=== PATIENT | female | born 1935 | race Caucasian/White ===

== ENCOUNTER 2021-10-10 09:19 | Day surgery (SDC) | payer OTHER, BC ==
[2021-10-10] MEDS ORDERED: Ringers Lactate 1,000 ML IV ONE (09:44)
[2021-10-10] MEDS ORDERED: CEFAZOLIN/SWI 2gm 2 GM/20 ML SYR ONE (10:32)
[2021-10-10] MEDS ORDERED: LIDOCAINE 1% W/EPI 1:100,000 10 ML VIAL ONE (10:36)
[2021-10-10] MEDS ORDERED: NA CHLORIDE 0.9% 1,000 ML ONE (10:36)
[2021-10-10 10:41] VITALS: O2SAT 100
[2021-10-10] MEDS ORDERED: LIDOCAINE 2% MPF 5 ML VIAL ONE (11:17)
[2021-10-10] MEDS ORDERED: FENTANYL CITR 100 MCG/2 ML ONE (11:17)
[2021-10-10] MEDS ORDERED: propofoL 200 MG/20 ML VIAL IV ONE (11:17)
[2021-10-10] MEDS ORDERED: ONDANSETRON 4 MG/2 ML VIAL ONE (12:12)
[2021-10-10] MEDS ORDERED: HYDROCODONE/APAP 5/325 MG TAB PO PRN (12:59)
[2021-10-10] MEDS ORDERED: IBUPROFEN 200 MG TAB PO PRN (12:59)
[2021-10-10] MEDS: MEPERIDINE HCL 25 MG/ML SYR ONE ×2 (13:00→13:30)
--- NOTE | 2021-10-10 13:02 | P.BOP ---
Preoperative diagnosis: MIKA Postoperative diagnosis: same Primary procedure: Urethral bulking with bulkamid and cystoscopy Leading Firefighter: NONE,NONE Estimated blood loss: min Specimen: none Findings: normal cysto, Bulkamid .85ml Anesthesia: General Complications: None Implants: Bulkamid Transferred to: Recovery Room Condition: Good
--- NOTE | 2021-10-10 14:27 | OP ---
Date of Procedure: 10/10/2021 Surgeon: Lea Mcgraw MD Laminator Printed Circuit Boards: No assistant terminal manager. Preoperative Diagnosis: Stress urinary incontinence. Postoperative Diagnosis: Stress urinary incontinence. Anesthesia: General with LMA. Procedure Performed: Urethral bulking with Bulkamid and cystoscopy. Specimens: No specimens. Complications: No complications. Drains: No drains. Condition: The patient's condition is stable. Indications: The patient is an 86-year-old female with mixed urinary incontinence. The stress component of this was planned to be corrected with urethral bulking. She is on medical treatment on the bladder pathway for overactive bladder. Procedure In Detail: After informed consent was verified, 2 g of Ancef was given, the patient was taken back to the operating room. Vulva, vagina, and perineum were prepped and draped in a sterile fashion, and cystoscopy was performed with the pediatric cystoscope and normal saline. Then, once the cystoscopy was performed, no evidence of any tumors or other pathology. Scope was pulled out, adjusted for brisk dripping flow on the inflow. Then the Bulkamid needle was introduced into the Bulkamid sheath. The tip of the sheath was placed at the internal meatus and the needle was advanced to 2 cm. Then, the entire system was pulled back into the urethra 2 cm to the tip of needle at the level of the internal meatus. Then, turning the o'clock position of the injectable site to 5 o'clock, the needle was pulled back to the level of this distance from the internal meatus about 2 cm and the bevel facing towards the lumen injected in the submucosal area at least 2.5 cm and then the Hydrogel was injected after a decent sized bubble was formed. Then this was turned to 2 o'clock and injection was performed. Then went to the 11 o'clock and further injection was performed and then the last injection was given at 8 o'clock. Once all these were done, there was excellent and optimal narrowing of the urethra and I was able to retract the whole system back. Total used 0.8ml of the Bulkamid hydrogel. EBL was minimal. Instrument, needle, sponge counts were correct. The patient was recovered from anesthesia and taken to PACU in stable condition for a voiding trial. She will follow up with me in 3 days for another voiding trial. If she fails a voiding trial, we will send her home with the 12- Greek catheter. SK/MODL Voice ID: [id number] Report ID: [id number] ULISSES
[2021-10-10 15:26] VITALS: BP 149/93
[2021-10-10 15:36] VITALS: TEMP 98.2
[2021-10-10] MEDS ORDERED: ATORVASTATIN 40 MG TAB PO SCH (21:00)
[2021-10-11] MEDS ORDERED: DOCUSATE NA 100 MG CAP PO SCH (09:00)
[2021-10-11] MEDS ORDERED: NEBIVOLOL HCL 20 MG TABLET PO SCH (09:00)
[2021-10-11] MEDS ORDERED: HOME MED 1 EA UNK (Trospium Chloride [Sanctura] 20 MG Tablet) PO SCH (09:00)
[2021-10-11] MEDS ORDERED: AMLODIPINE 5 MG TAB PO SCH (09:00)
[2021-10-11] MEDS ORDERED: HOME MED 1 EA UNK (Lactobacillus Acidophilus [Probiotic] Capsule) PO SCH (09:00)
[2021-10-11] MEDS ORDERED: VITAMIN E 400 UNIT PO SCH (09:00)
[2021-10-11] MEDS ORDERED: ASPIRIN EC 81 MG TAB PO SCH (09:00)
[2021-10-11] MEDS ORDERED: ASCORBIC ACID 500 MG TABLET PO SCH (09:00)
[2021-10-11] MEDS ORDERED: HOME MED 1 EA UNK (Cholecalciferol (Vitamin D3) [Vitamin D3] 2000 UNIT Capsule) PO SCH (09:00)
[2021-10-11] MEDS ORDERED: MORINGA PO SCH (09:00)
[2021-10-11] MEDS ORDERED: HOME MED 1 EA UNK (Duloxetine Hcl [Duloxetine Hcl] 60 MG Capsule.Dr) PO SCH (09:00)
[2021-10-11] MEDS ORDERED: hydroCHLOROthiazide 12.5 MG CAP PO SCH (09:00)
[2021-10-11] MEDS ORDERED: HOME MED 1 EA UNK (Liraglutide [Victoza 2-Pak] 0.6 MG/0.1 ML Pen.Injctr) SQ SCH (09:00)
[2021-10-11] MEDS ORDERED: HOME MED 1 EA UNK (Losartan Potassium [Losartan Potassium] 100 MG Tablet) PO SCH (09:00)
[2021-10-11] MEDS ORDERED: HOME MED 1 EA UNK (Estradiol [Estradiol] 42.5 GM Cream.Appl) VG SCH (17:00)
== END 2021-10-10 15:00 | disposition home or self-care (01) ==
LOC: OR 09:19
PROVIDERS: ATTEND Obstetrics & Gynecology
PROC: 0TVD8ZZ Restriction of Urethra, Via Natural or Artificial Opening Endoscopic (ICD-10-PCS; principal; 2021-10-10 12:15)
DX: N39.3 Stress incontinence (female) (male) (principal); R39.14 Feeling of incomplete bladder emptying; N95.2 Postmenopausal atrophic vaginitis; N32.81 Overactive bladder; Z20.822 Contact with and (suspected) exposure to COVID-19
CPT/HCPCS: 82947 ×2; 51715; U0003; J2704; J3010; J2175; J0690; J7120; J7030; J2405; L8606

== ENCOUNTER 2022-02-20 07:15 | Day surgery (SDC) | payer OTHER, BC ==
[2022-02-20] MEDS ORDERED: CEFAZOLIN/SWI 2gm 2 GM/20 ML SYR ONE (07:33)
[2022-02-20] MEDS ORDERED: NA CHLORIDE 0.9% 1,000 ML ONE (07:33)
[2022-02-20 08:15] VITALS: O2SAT 100
[2022-02-20] MEDS ORDERED: ACETAMINOPHEN 500 MG TAB ONE (08:31)
[2022-02-20] MEDS ORDERED: propofoL 200 MG/20 ML VIAL IV ONE (08:41)
[2022-02-20] MEDS ORDERED: FENTANYL CITR 100 MCG/2 ML ONE (08:41)
[2022-02-20] MEDS ORDERED: ROCURONIUM 50 MG/5 ML VIAL IV ONE (08:42)
[2022-02-20] MEDS ORDERED: LIDOCAINE 2% MPF 5 ML VIAL ONE (08:42)
[2022-02-20] MEDS ORDERED: ONDANSETRON 4 MG/2 ML VIAL ONE (08:43)
[2022-02-20] MEDS ORDERED: Mastisol Adhesive Liq ONE (10:13)
[2022-02-20] MEDS: BUPIVACAINE 0.25% PF 10 ML VIAL ONE ×2 (11:28→11:39)
[2022-02-20] MEDS ORDERED: EPHEDRINE SULF 50 MG/ML VIAL ONE (11:45)
[2022-02-20 14:29] VITALS: BP 120/47; TEMP 96.2
--- NOTE | 2022-02-20 17:23 | RAD REPORT ---
EXAM DESCRIPTION: RAD - Fluoroscopy <1 Hour - 02/20/2022 5:04 pm FINDINGS: There were 25 portable C-arm images submitted from a fluoroscopic assisted sacral neural m odulation procedure. No suspicious or unexpected finding. Fluoro time was 1.5 minutes with a 37.4 mGy cumulative dose.
== END 2022-02-20 14:25 | disposition home or self-care (01) ==
LOC: OR 07:15
PROVIDERS: ATTEND Obstetrics & Gynecology
PROC: 4A1104G Monitoring of Peripheral Nervous Electrical Activity, Intraoperative, Open Approach (ICD-10-PCS; principal; 2022-02-20 08:30)
DX: N39.3 Stress incontinence (female) (male) (principal); N32.81 Overactive bladder; E11.9 Type 2 diabetes mellitus without complications; I10 Essential (primary) hypertension; Z20.822 Contact with and (suspected) exposure to COVID-19
CPT/HCPCS: 80048; 36415; 82947 ×2; 53899; U0002; J2704; J3010; J0690; J7030; J2405; 76000

== ENCOUNTER 2022-03-06 06:23 | Day surgery (SDC) | payer OTHER, BC ==
[2022-03-06] MEDS ORDERED: CEFAZOLIN/SWI 2gm 2 GM/20 ML SYR ONE (06:50)
[2022-03-06] MEDS ORDERED: NA CHLORIDE 0.9% 1,000 ML ONE (06:50)
[2022-03-06] MEDS ORDERED: propofoL 200 MG/20 ML VIAL IV ONE ×2 (07:14→07:32)
[2022-03-06] MEDS ORDERED: FENTANYL CITR 100 MCG/2 ML ONE (07:14)
[2022-03-06] MEDS ORDERED: LIDOCAINE 2% MPF 5 ML VIAL ONE (07:15)
[2022-03-06] MEDS ORDERED: MIDAZOLAM HCL 2 MG/2 ML INJ ONE (07:15)
[2022-03-06] MEDS ORDERED: ONDANSETRON 4 MG/2 ML VIAL ONE (07:16)
[2022-03-06] MEDS ORDERED: LIDOCAINE 1% MPF 30 ML VIAL ONE (07:19)
[2022-03-06] MEDS ORDERED: LIDOCAINE 1% W/EPI 1:100,000 MDV 50 ML VIAL ONE (07:20)
[2022-03-06] MEDS ORDERED: IBUPROFEN 200 MG TAB PO PRN (09:05)
[2022-03-06] MEDS ORDERED: MEPERIDINE HCL 25 MG/ML SYR IM PRN (09:05)
--- NOTE | 2022-03-06 09:07 | P.BOP ---
Preoperative diagnosis: refractory OAB Postoperative diagnosis: same Primary procedure: stage 2 Interstim insertion and battery programming Distributor Cleaner: NONE,NONE Estimated blood loss: min Specimen: none Findings: intact lead wire Anesthesia: General Complications: None Transferred to: Recovery Room Condition: Good
[2022-03-06 09:29] VITALS: BP 118/58; TEMP 97.2; O2SAT 100
--- NOTE | 2022-03-06 20:18 | OP ---
Date of Procedure: 03/06/2022 Surgeon: Lea Mcgraw MD Preoperative Diagnosis: Refractory overactive bladder. Postoperative Diagnosis: Refractory overactive bladder. Procedures Performed: Stage II InterStim with insertion of the battery and programming. Anesthesia: MAC with a local block. Complications: None. Drains: None. Specimens: None. Ebl: Minimal. Condition: Stable. Findings: The lead wire was intact. The external test wire was removed and the implant placed at le ast half to 3/4th-inch deep to the skin and closed with absorbable sutures in 3 layers. The device was coupled and then the patient was recovered from anesthesia and taken to the PACU. Indications: After informed consent was verified, the patient was brought to the OR. This is an 87- year-old who underwent stage I in the operating room with significant success. Based on her voiding log and her history, wanted to proceed with stage II implantation of the battery. Procedure In Detail: After she was consented, 2 g of Ancef were given. She was taken back to the OR , placed in the prone position. After MAC was given, her back was prepped and draped in a sterile fa shion. The incision on the left buttock was made after injecting with local 0.25% Marcaine with epin ephrine, 20 cc was injected. A 7-cm incision was made extending from the old scar at the time of sta ge I, then the pocket was created at least 3/4 to 1-inch deep without touching the bone 2 cm inferior and medial to the iliac crest. A pocket was created at least 1.5 cm towards the cephalad end of the incision and then at least 2 inc hes caudad to fit the battery. The lead wire was pulled back to expose the tip of the lead wire, which was inserted into the test wi re connector. A screwdriver was used to unlock the tip of the lead wire out, cut the attachment and then the wire was pulled out through the old incision on the right side, then this was discarded. Th e battery was then opened up and the lead wire inserted into the battery to lock it. The screwdriver was used to turn it, 2 to 3 turns. Once this was appropriate and fully inserted, then using the ret ractor, the battery was inserted leaving the lead wire behind the battery. Irrigation of the pocket was done with sterile water. Once the paring was done, the subcutaneous tissues were closed with the help of 3-0 chromic and a second layer of 3-0 chromic was placed in the subcutaneous tissues and sub cuticular closure was performed with the help of 3-0 chromic as well. Dermabond was placed, device w as pared, re-checked again that it connected, and the patient was recovered from anesthesia and taken to PACU in stable condition. EBL was minimal. She will follow up with me in 1 week. Programming will be done tomorrow. ABDULLAHI/ALICE Voice ID: [id number] Report ID: [id number]
[2022-03-06] MEDS ORDERED: ATORVASTATIN 40 MG TAB PO SCH (21:00)
[2022-03-07] MEDS ORDERED: HOME MED 1 EA UNK (Losartan Potassium [Losartan Potassium] 100 MG Tablet) PO SCH (09:00)
[2022-03-07] MEDS ORDERED: ASCORBIC ACID 500 MG TABLET PO SCH (09:00)
[2022-03-07] MEDS ORDERED: NEBIVOLOL HCL 20 MG TABLET PO SCH (09:00)
[2022-03-07] MEDS ORDERED: HOME MED 1 EA UNK (Lactobacillus Acidophilus [Probiotic] Capsule) PO SCH (09:00)
[2022-03-07] MEDS ORDERED: DOCUSATE NA 100 MG CAP PO SCH (09:00)
[2022-03-07] MEDS ORDERED: hydroCHLOROthiazide 12.5 MG CAP PO SCH (09:00)
[2022-03-07] MEDS ORDERED: VITAMIN E 400 UNIT PO SCH (09:00)
[2022-03-07] MEDS ORDERED: HOME MED 1 EA UNK (Cholecalciferol (Vitamin D3) [Vitamin D3] 2000 UNIT Capsule) PO SCH (09:00)
[2022-03-07] MEDS ORDERED: AMLODIPINE 5 MG TAB PO SCH (09:00)
[2022-03-07] MEDS ORDERED: HOME MED 1 EA UNK (Liraglutide [Victoza 2-Pak] 0.6 MG/0.1 ML Pen.Injctr) SQ SCH (09:00)
[2022-03-08] MEDS ORDERED: ASPIRIN EC 81 MG TAB PO SCH (09:00)
== END 2022-03-06 10:05 | disposition home or self-care (01) ==
LOC: OR 06:23
PROVIDERS: ATTEND Obstetrics & Gynecology
PROC: 0JH70BZ Insertion of Single Array Stimulator Generator into Back Subcutaneous Tissue and Fascia, Open Approach (ICD-10-PCS; principal; 2022-03-06 07:30)
DX: N32.81 Overactive bladder (principal); Z20.822 Contact with and (suspected) exposure to COVID-19
CPT/HCPCS: 82947 ×2; 64590; U0003; J2704; J3010; J0690; J7030; J2405; J2250

== ENCOUNTER 2024-04-04 07:01 | Emergency (ER) | payer OTHER, BC ==
[2024-04-04] MEDS ORDERED: FENTANYL CITR 100 MCG/2 ML ONE (07:38)
[2024-04-04] MEDS ORDERED: dexAMETHasone 10 MG/ML VIAL ONE (07:38)
[2024-04-04] MEDS ORDERED: ONDANSETRON 4 MG/2 ML VIAL ONE (07:38)
[2024-04-04] MEDS ORDERED: KETOROLAC 30 MG/ML INJ ONE (07:38)
[2024-04-04] MEDS ORDERED: NA CHLORIDE 0.9% 500 ML ONE (07:40)
[2024-04-04 07:58] LABS: Absolute Basophils 0.1 K/uL (0-0.5); Absolute Eosinophils 0.2 K/uL (0-0.5); Absolute Lymphocytes (CBC) 1.2 K/uL (0.7-4.9); Absolute Monocytes 0.8 K/uL (0.1-1.3); Absolute Neutrophil 4.3 K/uL (1.8-8.0); Basophils % 1.2 % (0-1.3); Eosinophils % 2.9 % (0-4.4); Hematocrit 36.3 % (36.0-45.0); Hemoglobin 12.2 g/dL (12.0-15.0); Lymphocytes % 18.1 % (15.3-44.8); MCH 33.2 pg (27.0-35.0); MCHC 33.6 g/dL (32.0-36.0); MCV 98.9 fL (80-100); Monocytes % 12.7 % (3.3-12.3); Neutrophils % 65.1 % (41.7-73.7); Nucleated Red Blood Cells % 0.1 % (0-0); Platelets 263 thou/uL (152-406); RBC Red Blood Cell Count 3.67 M/uL (3.86-4.86); Red Cell Distribution Width 14.7 % (12.1-15.2)
--- NOTE | 2024-04-04 08:04 | RAD REPORT ---
EXAM DESCRIPTION: RAD - Ankle Right 3 View - 04/04/2024 7:52 am CLINICAL HISTORY: PAIN COMPARISON: Ankle Left 3 View dated 04/27/2020 FINDINGS/IMPRESSION: No acute fracture. No malalignment. Plantar and dorsal aspect calcaneal spurs.
--- NOTE | 2024-04-04 08:05 | RAD REPORT ---
EXAM DESCRIPTION: RAD - Foot Right 3 View - 04/04/2024 7:52 am CLINICAL HISTORY: PAIN COMPARISON: Foot Right 3 View dated 10/22/2023; Ankle Right 3 View dated 04/04/2024 FINDINGS/IMPRESSION: No acute fracture. No malalignment. Mild degenerate changes at the first MTP priyanka int.
--- NOTE | 2024-04-04 08:21 | RAD REPORT ---
EXAM DESCRIPTION: US - Extremity Venous Uni Ltd - 04/04/2024 8:02 am CLINICAL HISTORY: Pain COMPARISON: None. TECHNIQUE: Real-time sonographic evaluation of the right lower extremity deep venous system was perf ormed. FINDINGS: Normal compressibility, flow augmentation, phasic flow and spontaneous flow is identified in the right lower extremity deep venous system. No intraluminal filling defects seen. IMPRESSION: No DVT in the right lower extremity.
[2024-04-04 08:31] LABS: Albumin 3.5 g/dL (3.4-5.0); Albumin/Globulin Ratio 1.2 (1.1-1.8); Anion Gap 6.9 mEq/L (5.0-15.0); Bilirubin Total 1.1 mg/dL (0.2-1.0); Globulin 2.9 g/dL (2.3-3.5); Potassium 3.9 mEq/L (3.5-5.1); Protein, Total 6.4 g/dL (6.4-8.2)
--- NOTE | 2024-04-04 08:38 | ER ---
Nurse's Notes [facility] Name: Supriya Bright Age: 89 yrs Sex: Female : 1935 Arrival Date: 04/04/2024 Time: 07:01 Bed 6 Private MD: Diagnosis: Pain in right foot;Pain in right ankle and joints of right foot Presentation: 04/04 07:14 Chief complaint: Patient states: "I have neuropathy but my right foot has been hurting aa5 worse and it's now swollen". Pt c/o pain to right ankle and foot. Pt states "maybe I twisted yesterday because I was folding clothes and I felt a sharp pain". 07:14 Coronavirus screen: At this time, the client does not indicate any symptoms associated aa5 with coronavirus-19. Ebola Screen: Patient denies travel to an Ebola-affected area in the 21 days before illness onset. Initial Sepsis Screen: Does the patient meet any 2 criteria? No. Patient's initial sepsis screen is negative. Does the patient have a suspected source of infection? No. Patient's initial sepsis screen is negative. Risk Assessment: Do you want to hurt yourself or someone else? Patient reports no desire to harm self or others. Onset of symptoms was April 03, 2024. 07:14 Method Of Arrival: Ambulatory aa5 07:14 Acuity: TOLU 3 aa5 Historical: - Allergies: 07:22 No Known Allergies; aa5 - PMHx: 07:22 Hypertensive disorder; Diabetes mellitus; neuropathy; hard of hearing; aa5 - Immunization history:: Adult Immunizations unknown. - Infectious Disease History:: Denies. - Social history:: Smoking status: Patient denies any tobacco usage or history of. Screenin:26 [facility] ED Fall Risk Assessment (Adult) History of falling in the last 3 months, aa5 including since admission No falls in past 3 months (0 pts) Confusion or Disorientation No (0 pts) Intoxicated or Sedated No (0 pts) Impaired Gait Yes (1 pt) Mobility Assist Device Used Yes (1 pt) Altered Elimination No (0 pt) Score/Fall Risk Level 0 - 2 = Low Risk Oriented to surroundings, Maintained a safe environment, Educated pt \\T\\ family on fall prevention, incl call for assistance when getting out of bed. Abuse screen: Denies threats or abuse. Nutritional screening: No deficits noted. Tuberculosis screening: No symptoms or risk factors identified. Assessment: 07:15 General: Appears comfortable, Behavior is calm, cooperative. Pain: Complains of pain in aa5 right ankle and right foot. Neuro: Level of Consciousness is awake, alert, obeys commands, Oriented to person, place, time, situation. Cardiovascular: Patient's skin is warm and dry. Respiratory: Airway is patent Respiratory effort is even, unlabored, Respiratory pattern is regular, symmetrical. GI: No signs and/or symptoms were reported involving the gastrointestinal system. : No signs and/or symptoms were reported regarding the genitourinary system. EENT: No signs and/or symptoms were reported regarding the EENT system. Derm: Skin is pink, warm \\T\\ dry. Musculoskeletal: Swelling present in right ankle Reports pain in right ankle and right foot. 08:13 Reassessment: Patient is alert, oriented x 3, equal unlabored respirations, skin aa5 warm/dry/pink. Assisted with bedpan, pt voided.. 09:00 Reassessment: Patient is alert, oriented x 3, equal unlabored respirations, skin aa5 warm/dry/pink. Vital Signs: 07:14 BP 124 / 92; Pulse 65; Resp 17 S; Temp 97.8(TE); Pulse Ox 100% on R/A; Weight 76.2 kg aa5 (R); Height 5 ft. 5 in. (R); 08:13 BP 94 / 66; Pulse 60; Resp 18 S; Pulse Ox 100% on R/A; aa5 08:40 BP 114 / 48; Pulse 56; Resp 16 S; Pulse Ox 100% on R/A; aa5 08:55 BP 108 / 49; Pulse 60; Resp 16 S; Temp 97.5(TE); Pulse Ox 100% on R/A; aa5 07:14 Body Mass Index 27.96 (76.20 kg, 165.1 cm) aa5 [place] Coma Score: 07:27 Eye Response: spontaneous(4). Motor Response: obeys commands(6). Verbal Response: loretta oriented(5). Total: 15. ED Course: 07:05 Patient arrived in ED. ts1 07:05 Juliocesar Delong MD is Attending Physician. loretta 07:14 Arm band placed on. aa5 07:14 Patient has correct armband on for positive identification. Bed in low position. Call aa5 light in reach. Side rails up X2. Pulse ox on. NIBP on. 07:22 Janet Chapa, ESTUARDO is Primary Nurse. aa5 07:25 Triage completed. aa5 07:35 Initial lab(s) drawn, by me, sent to lab. Inserted saline lock: 22 gauge in right aa5 forearm, using aseptic technique. Blood collected. 07:54 Foot Right 3 View XRAY In Process Unspecified. EDMS 07:54 Ankle Right 3 View XRAY In Process Unspecified. EDMS 08:04 US Extremity Venous Unilateral Ltd In Process Unspecified. EDMS 08:37 Dawson Cabrera MD is Referral Physician. [facility] 09:00 No provider procedures requiring assistance completed. IV discontinued, intact, aa5 bleeding controlled, No redness/swelling at site. Pressure dressing applied. Administered Medications: 07:45 Drug: NS 0.9% IV 500 ml IV at bolus once Route: IV; Rate: bolus; Site: right forearm; aa5 08:30 Follow up: IV Status: Completed infusion; IV Intake: 500ml aa5 07:45 Drug: Ondansetron IVP 4 mg IVP once; over 2 minutes Route: IVP; Site: right forearm; aa5 08:00 Follow up: Response: No adverse reaction aa5 07:47 Drug: Ketorolac IVP 15 mg IVP once Route: IVP; Site: right forearm; aa5 08:00 Follow up: Response: No adverse reaction aa5 07:48 Drug: Decadron - Dexamethasone IVP 10 mg IVP once Route: IVP; Site: right forearm; aa5 08:00 Follow up: Response: No adverse reaction aa5 07:49 Drug: fentaNYL (PF) IVP 25 mcg IVP once Route: IVP; Site: right forearm; aa5 08:00 Follow up: Response: No adverse reaction aa5 08:48 Not Given (Physician Discretion): ns 0.9% 500 ml IV at bolus once aa5 Medication: 07:26 VIS not applicable for this client. aa5 Intake: 08:30 IV: 500ml; Total: 500ml. aa5 Outcome: 08:37 Discharge ordered by . loretta 09:00 Discharged to home via wheelchair, with family, aa5 09:00 Condition: stable 09:00 Discharge instructions given to patient, Instructed on discharge instructions, follow up and referral plans. medication usage, Demonstrated understanding of instructions, follow-up care, medications, Prescriptions given X 3, 09:03 Patient left the ED. aa5 Signatures: Dispatcher [employer] EDJuliocesar Samuels MD MD cha Calderon, Audri RN RN aa5 Emily Geiger PAS PAS ts1 Corrections: (The following items were deleted from the chart) 57 07:45 Inserted saline lock: 22 gauge in right forearm, using aseptic technique. Blood aa5 collected. aa5 57 07:45 Initial lab(s) drawn, by va, sent to lab. aa5 aa5
--- NOTE | 2024-04-04 08:38 | EDPHYS ---
Physician Documentation [facility] Name: Supriya Bright Age: 89 yrs Sex: Female : 1935 Arrival Date: 04/04/2024 Time: 07:01 Bed 6 Private MD: ED Physician Juliocesar Delong HPI: 04/04 07:26 This 89 yrs old Female presents to ER via Ambulatory with complaints of Leg loretta Pain. 07:26 The patient presents with decreased range of motion, pain, tenderness. The complaints loretta affect the right foot. Context: The problem was sustained at home, resulted from an unknown cause, the patient can partially bear weight, the patient is able to ambulate, with mild difficulty. Onset: The symptoms/episode began/occurred 2 day(s) ago. Modifying factors: The symptoms are alleviated by elevating leg, remaining still, the symptoms are aggravated by nothing. Associated signs and symptoms: The patient has no apparent associated signs or symptoms. Severity of symptoms: At their worst the symptoms were moderate, in the emergency department the symptoms are unchanged. The patient has not experienced similar symptoms in the past. Historical: - Allergies: 07:22 No Known Allergies; aa5 - PMHx: 07:22 Hypertensive disorder; Diabetes mellitus; neuropathy; hard of hearing; aa5 - Immunization history:: Adult Immunizations unknown. - Infectious Disease History:: Denies. - Social history:: Smoking status: Patient denies any tobacco usage or history of. ROS: 07:27 Constitutional: Negative for fever, chills, and weight loss, Eyes: Negative for injury, loretta pain, redness, and discharge, ENT: Negative for injury, pain, and discharge, Neck: Negative for injury, pain, and swelling, Cardiovascular: Negative for chest pain, palpitations, and edema, Respiratory: Negative for shortness of breath, cough, wheezing, and pleuritic chest pain, Abdomen/GI: Negative for abdominal pain, nausea, vomiting, diarrhea, and constipation, Back: Negative for injury and pain, : Negative for injury, bleeding, discharge, and swelling, Skin: Negative for injury, rash, and discoloration, Neuro: Negative for headache, weakness, numbness, tingling, and seizure, Psych: Negative for depression, anxiety, suicide ideation, homicidal ideation, and hallucinations, Allergy/Immunology: Negative for hives, rash, and allergies, Endocrine: Negative for neck swelling, polydipsia, polyuria, polyphagia, and marked weight changes, Hematologic/Lymphatic: Negative for swollen nodes, abnormal bleeding, and unusual bruising, 07:27 MS/extremity: Positive for decreased range of motion, pain, of the right foot, Exam: 07:27 Constitutional: This is a well developed, well nourished patient who is awake, alert, loretta and in no acute distress. Head/Face: Normocephalic, atraumatic. Eyes: Pupils equal round and reactive to light, extra-ocular motions intact. Lids and lashes normal. Conjunctiva and sclera are non-icteric and not injected. Cornea within normal limits. Periorbital areas with no swelling, redness, or edema. ENT: Nares patent. No nasal discharge, no septal abnormalities noted. Tympanic membranes are normal and external auditory canals are clear. Oropharynx with no redness, swelling, or masses, exudates, or evidence of obstruction, uvula midline. Mucous membranes moist. Neck: Trachea midline, no thyromegaly or masses palpated, and no cervical lymphadenopathy. Supple, full range of motion without nuchal rigidity, or vertebral point tenderness. No Meningismus. Chest/axilla: Normal chest wall appearance and motion. Nontender with no deformity. No lesions are appreciated. Cardiovascular: Regular rate and rhythm with a normal S1 and S2. No gallops, murmurs, or rubs. Normal PMI, no JVD. No pulse deficits. Respiratory: Lungs have equal breath sounds bilaterally, clear to auscultation and percussion. No rales, rhonchi or wheezes noted. No increased work of breathing, no retractions or nasal flaring. Abdomen/GI: Soft, non-tender, with normal bowel sounds. No distension or tympany. No guarding or rebound. No evidence of tenderness throughout. Back: No spinal tenderness. No costovertebral tenderness. Full range of motion. Skin: Warm, dry with normal turgor. Normal color with no rashes, no lesions, and no evidence of cellulitis. Neuro: Awake and alert, GCS 15, oriented to person, place, time, and situation. Cranial nerves II-XII grossly intact. Motor strength 5/5 in all extremities. Sensory grossly intact. Cerebellar exam normal. Normal gait. Psych: Awake, alert, with orientation to person, place and time. Behavior, mood, and affect are within normal limits. 07:27 Musculoskeletal/extremity: ROM: full active range of motion, full passive range of motion, limited active range of motion due to pain, limited passive range of motion due to pain, Pulses: are normal with no appreciated deficits, Sensation intact. Compartment Syndrome exam of affected extremity: is normal. Joints: All joints are normal except the right ankle displays pain at rest, painful range of motion, tenderness, Weight bearing: can bear weight with assistance only, DVT Exam: no swelling, negative Homans' sign noted on exam, no appreciated bluish discoloration, no erythema, no increased warmth, pain, tenderness, Vital Signs: 07:14 BP 124 / 92; Pulse 65; Resp 17 S; Temp 97.8(TE); Pulse Ox 100% on R/A; Weight 76.2 kg aa5 (R); Height 5 ft. 5 in. (R); 08:13 BP 94 / 66; Pulse 60; Resp 18 S; Pulse Ox 100% on R/A; aa5 08:40 BP 114 / 48; Pulse 56; Resp 16 S; Pulse Ox 100% on R/A; aa5 08:55 BP 108 / 49; Pulse 60; Resp 16 S; Temp 97.5(TE); Pulse Ox 100% on R/A; aa5 07:14 Body Mass Index 27.96 (76.20 kg, 165.1 cm) aa5 [place] Coma Score: 07:27 Eye Response: spontaneous(4). Motor Response: obeys commands(6). Verbal Response: loretta oriented(5). Total: 15. MDM: 07:06 Patient medically screened. [facility] 07:42 Data reviewed: vital signs, nurses notes, lab test result(s), radiologic studies, plain loretta films, ultrasound. Consideration of Admission/Observation Escalation of care including admission/observation considered. I considered the following discharge prescriptions or medication management in the emergency department Medications were administered in the Emergency Department. See MAR. Independent interpretation of the following test(s) in the Emergency Department X-Ray: My interpretation is foot and ankle. Test considered but Not performed: CT: no ct foot and ankle. 04/04 07:25 Order name: CBC with Diff; Complete Time: 08:18 [facility] 04/04 07:25 Order name: Comprehensive Metabolic Panel; Complete Time: 08:37 loretta 04/04 07:25 Order name: Foot Right 3 View XRAY; Complete Time: 08:18 loretta 04/04 07:25 Order name: Ankle Right 3 View XRAY; Complete Time: 08:18 loretta 04/04 07:26 Order name: US Extremity Venous Unilateral Ltd; Complete Time: 08:29 loretta Administered Medications: 07:45 Drug: NS 0.9% IV 500 ml IV at bolus once Route: IV; Rate: bolus; Site: right forearm; aa5 08:30 Follow up: IV Status: Completed infusion; IV Intake: 500ml aa5 07:45 Drug: Ondansetron IVP 4 mg IVP once; over 2 minutes Route: IVP; Site: right forearm; aa5 08:00 Follow up: Response: No adverse reaction aa5 07:47 Drug: Ketorolac IVP 15 mg IVP once Route: IVP; Site: right forearm; aa5 08:00 Follow up: Response: No adverse reaction aa5 07:48 Drug: Decadron - Dexamethasone IVP 10 mg IVP once Route: IVP; Site: right forearm; aa5 08:00 Follow up: Response: No adverse reaction aa5 07:49 Drug: fentaNYL (PF) IVP 25 mcg IVP once Route: IVP; Site: right forearm; aa5 08:00 Follow up: Response: No adverse reaction aa5 08:48 Not Given (Physician Discretion): ns 0.9% 500 ml IV at bolus once aa5 Disposition Summary: 04/04/24 08:37 Discharge Ordered Notes: Location: Home loretat Problem: new loretta Symptoms: have improved loretta Condition: Stable loretta Diagnosis - Pain in right foot loretta - Pain in right ankle and joints of right foot loretta Followup: loretta - With: Private Physician - When: 2 - 3 days - Reason: Recheck today's complaints, Continuance of care, Re-evaluation by your physician Followup: loretta - With: Dawson Cabrera MD - When: 2 - 3 days - Reason: Recheck today's complaints, Re-evaluation by your physician Discharge Instructions: - Discharge Summary Sheet loretta - Joint Pain loretta - Arthritis loretta - Musculoskeletal Pain loretta - Ankle Pain loretta - Joint Pain, [id number] loretta - Foot Pain loretta Forms: - Medication Reconciliation Form loretta - Antibiotic Education loretta - Prescription Opioid Use loretta - Patient Portal Instructions [facility] - Leadership Thank You Letter [facility] Prescriptions: - acetaminophen-codeine 300-30 mg Oral tablet - take 2 tablet ORAL route every 6 hours as needed for pain; 20 tablet; Refills: [facility] 0, Product Selection Permitted - diclofenac sodium 25 mg Oral tablet, delayed release (enteric coated) - take 1 tablet ORAL route every 12 hours as needed for pain; 20 tablet; Refills: [facility] 0, Product Selection Permitted - Medrol (Ruddy) 4 mg Oral Tablets, Dose Pack - take 1 tablet ORAL route as directed - follow package instructions; 1 packet; [facility] Refills: 0, Product Selection Permitted Signatures: Dispatcher [employer] Juliocesar Vasquez MD MD cha Calderon, Audri, RN RN aa5
[2024-04-04 09:21] VITALS: BP 114/48; TEMP 97.8; O2SAT 100
== END 2024-04-04 09:03 | disposition home or self-care (01) ==
LOC: ER 07:01
DX: M79.671 Pain in right foot (principal); M25.571 Pain in right ankle and joints of right foot
CPT/HCPCS: 96361; 85025; 36415; 80053; 73630; 73610; 93971; 96375; 96374; 99284; J3010; J1100; J2405; J7040

== ENCOUNTER 2025-03-29 14:34 | Observation (INO) | payer OTHER, BC ==
[2025-03-29] MEDS: NA CHLORIDE 0.9% 1,000 ML IV SCH (15:40)
[2025-03-29 15:54] VITALS: BMI 27.4
[2025-03-29 16:18] LABS: Absolute Lymphocytes (CBC) 0.3 K/uL (0.7-4.9); Absolute Monocytes 0.8 K/uL (0.1-1.3); Absolute Neutrophil 2.5 K/uL (1.8-8.0); Basophils % 0.8 % (0-1.3); Eosinophils % 1.1 % (0-4.4); Hematocrit 32.1 % (36.0-45.0); Hemoglobin 11.2 g/dL (12.0-15.0); Lymphocytes % 9.3 % (15.3-44.8); MCH 35.2 pg (27.0-35.0); MCV 100.6 fL (80-100); MPV 7.3 fL (7.6-11.3); Monocytes % 20.9 % (3.3-12.3); Neutrophils % 67.9 % (41.7-73.7); Nucleated Red Blood Cells % 0.1 % (0-0); Platelets 167 thou/uL (152-406); RBC Red Blood Cell Count 3.19 M/uL (3.86-4.86); Red Cell Distribution Width 15.2 % (12.1-15.2)
[2025-03-29] MEDS: INSULIN REGULAR (HUMAN) 100 UNIT/ML SQ SCH (16:30)
[2025-03-29 16:41] LABS: Albumin/Globulin Ratio 1.3 (1.1-1.8); Anion Gap 8.3 mEq/L (5.0-15.0); Bilirubin Total 0.7 mg/dL (0.2-1.0); Globulin 2.3 g/dL (2.3-3.5); Potassium 3.3 mEq/L (3.5-5.1); Protein, Total 5.3 g/dL (6.4-8.2)
[2025-03-29] MEDS: POTASSIUM CL SA 10 MEQ TAB PO ONE (17:16)
[2025-03-29] MEDS: ENOXAPARIN 40 MG/0.4 ML SQ SCH (17:16)
[2025-03-29 19:23] LABS: Blood Morphology Comment NOT SEEN (NOT SEEN); Platelet Estimate ADEQ; White Blood Cell Scan OK (OK)
[2025-03-29] MEDS ORDERED: ONDANSETRON 4 MG/2 ML VIAL IV PRN (20:13)
[2025-03-29] MEDS: LOPERAMIDE HCL 2 MG CAPSULE PO PRN (20:29)
--- NOTE | 2025-03-30 02:55 | HP ---
Date of Admission: 03/29/2025 Chief Complaint: Vomiting, diarrhea, feeling weak. History Of Present Illness: This is an 89-year-old pleasant female patient, who went to [facility] yesterday with acute onset of nausea, vomiting, diarrhea. The patient had about 5 different episodes of vomiting and 6 episodes of diarrhea. Denies any blood in stool or blood in v omiting. No fever. No chills. No abdominal pain, but had some abdominal cramping. All these sympt oms started when she was outside at [facility] and all of a sudden she felt very weak and felt like s he was going to fall down and faint, so ambulance was called and she was taken to emergency room wher e she was evaluated and sent home with some nausea medication. The patient came in to see me at [facility]. Her blood pressure has been running low at home since this episode with systolic blood pressure around 80 or so. At office, her blood pressure was low and after I evaluated her, decision was made to admit her to hospital and arrangements were made for direct admission to the hospital. Allergies: TO CODEINE CAUSING NAUSEA AND VOMITING. Medications: Amlodipine 5 mg 2 times a day, aspirin 81 mg daily, atorvastatin 40 mg daily, docusate sodium 200 mg 2 times a day, escitalopram 5 mg daily with breakfast, hydrochlorothiazide 25 mg daily in morning, losartan 100 mg daily, Bystolic 20 mg daily, and Ozempic 0.25 mg once a week. It is impo rtant to note that the patient has not taken any of her blood pressure medications today. Review of Systems: GI: As mentioned above. Constitutional: As mentioned above. All other systems reviewed and negative. Past Medical History: Significant for type 2 diabetes mellitus with neuropathy, hypertension, hyperl ipidemia, constipation, osteoarthritis at multiple sites. Past Surgical History: Appendectomy, hysterectomy, sacral neuromodulator placement for overactive bl adder and this was done on February 20, 2022, and bilateral knee surgery. Family History: Father had [place] and diabetes. Mother had [place] and diabetes. Brother, coronary artery d isease, diabetes, hypertension. Sister, diabetes and hypertension. Social History: Negative for smoking and alcohol use. Physical Examination: Vital Signs: At office, blood pressure 80/50, pulse 66, temperature 98, respiratory rate 16, weight 164 pounds, height 5 feet 4 inches. General: The patient appears weaker than normal, but not in any distress. HEENT: Head atraumatic, normocephalic. Conjunctivae nonerythematous. Sclerae white. Mouth, no thr ush or edema noted. Ears/Nose, no mass, lesion, discharge noted. Neck: Supple. No JVD, lymph nodes, bruit, thyromegaly noted. Lungs: Bilateral good equal air entry. Clear to auscultation. No rhonchi. No rales. Heart: Normal heart sounds, no murmur or gallop. Abdomen: Soft, bowel sounds normal. No guarding, rigidity, tenderness, mass, hepatosplenomegaly, dis tention, or bruit noted. Extremities: No leg edema. No calf tenderness. Skin: No rash, ulcer, cellulitis. Lymphatics: No lymph node enlargement in neck, supraclavicular, infraclavicular region. Neuro: No focal neurological deficit. Chest: Unremarkable. External Genitalia: Deferred. Rectal: Deferred. Laboratory Data: WBC 3.7, hemoglobin 11.2, platelets 167. Sodium 134, potassium 3.3, chloride 103, bicarb 26, BUN 42, creatinine 1.18, glucose 102. Liver function tests unremarkable. Her BUN yesterd ay done at [facility] was 25, creatinine 0.96. Impression: 1. Volume depletion. 2. Acute gastroenteritis. 3. Hypokalemia. 4. Anemia. 5. Leukocytopenia. 6. Type 2 diabetes mellitus with diabetic neuropathy. 7. Hypertension. 8. Hyperlipidemia. 9. Osteoarthritis, multiple sites. Plan: We will go ahead and admit the patient to hospital for further evaluation and management of th is problem. The patient is appropriate for observation. We will go ahead and start her on IV fluid normal saline. For hypokalemia, replace electrolyte per electrolyte replacement protocol. We will r epeat blood work tomorrow morning to follow up on electrolytes and renal function. Symptomatic treat ment will be given for diarrhea and nausea, vomiting. The patient does not take any other diabetes m edication except Ozempic and no need for further intervention for diabetes while in the hospital. Fo r hypertension, we will keep all her blood pressure medications on hold and at appropriate time, we w ill restart it. Total time spent 60 minutes including review of lab results from [facility] visi t, evaluation and management today leading to this hospitalization, and making arrangements for hospi jasmin admission and providing care for this hospital admission. I will see her tomorrow for followup. DVT prophylaxis will be given using Lovenox. JUDAH/MODL Voice ID: [id number]
[2025-03-30 06:26] LABS: Anion Gap 7.1 mEq/L (5.0-15.0); Potassium 4.1 mEq/L (3.5-5.1)
[2025-03-30 11:52] VITALS: O2SAT 99
--- NOTE | 2025-03-30 13:31 | PN ---
Date of Progress Note: 03/30/2025 Subjective: The patient was seen this morning for followup. She was lying in bed, not in distress. Had 1 diarrhea episode last night after she had dinner. No nausea. No vomiting. No abdominal pain . Physical Examination: Vital Signs: Reviewed. This morning, temperature 97.4, pulse 63, respiratory rate 18, blood pressur e was 99/39, oxygen saturation 96%. HEENT: Unremarkable. Lungs: Clear to auscultation. Heart: Sounds normal. Abdomen: Soft. Bowel sounds normal. No guarding, rigidity, tenderness, distention. Extremities: No leg edema. Laboratory Data: Sodium 137, potassium 4.1, chloride 110, bicarb 24, BUN 33, creatinine 0.82, glucos e 90, magnesium 2. Impression: 1. Acute kidney injury. 2. Volume depletion. 3. Acute gastroenteritis. Plan: We will go ahead and continue IV fluid. The patient was encouraged to ambulate as tolerated. Continue current diet. Repeat blood work tomorrow morning and once the patient's blood pressure get s stabilized, we will plan to discharge her. Details and plan of treatment discussed with her. JUDAH/MODL Voice ID: [id number] Report ID: [id number]
[2025-03-30 16:45] VITALS: BP 129/61; TEMP 98
== END 2025-03-30 16:00 | disposition home or self-care (01) ==
LOC: 4TH 14:34
PROVIDERS: ADMIT Internal Medicine; ATTEND Internal Medicine
DX: K52.9 Noninfective gastroenteritis and colitis, unspecified (principal); E86.9 Volume depletion, unspecified; N17.9 Acute kidney failure, unspecified; D64.9 Anemia, unspecified; D72.819 Decreased white blood cell count, unspecified; E11.40 Type 2 diabetes mellitus with diabetic neuropathy, unspecified; I10 Essential (primary) hypertension; E78.5 Hyperlipidemia, unspecified; M19.90 Unspecified osteoarthritis, unspecified site; R19.7 Diarrhea, unspecified
CPT/HCPCS: 85025; 80048; 36415; 83735 ×2; 82947 ×5; 80053; G0379; J1650; J7030 ×3; G0378 ×2